=== PATIENT | female | born 1940 | race Caucasian/White ===

== ENCOUNTER 2025-08-17 16:21 | Emergency (ER) | payer MEDICARE, BC ==
[~2025-08-17] VITALS: Ht 157.5 cm; Wt 98.0 kg
[~2025-08-17 16:21] MED LIST: AMLO-212 PO; ASPI-524 PO; ATOR40TA PO; FESO4TAB PO; METO-357 PO
[2025-08-17 16:23] VITALS: BP 180/88
[2025-08-17] MEDS ORDERED: ROSU20TA PO (16:39)
[2025-08-17] MEDS ORDERED: VALS160T29 PO (16:39)
[2025-08-17] MEDS ORDERED: NEOM28.37 TP (17:01)
[2025-08-17] MEDS ORDERED: SILVER SULFADIAZINE 1% CREAM 50 GM TP ONE (17:07)
[2025-08-17] MEDS: SILVER SULFADIAZINE 1% CREAM 50 GM TP ONE (17:11)
[2025-08-17 17:12] VITALS: BP 165/79; O2SAT 97
== END 2025-08-17 17:11 | disposition home or self-care (01) ==
LOC: ER 16:21
DX: S61.512A Laceration without foreign body of left wrist, initial encounter (principal); S61.511A Laceration without foreign body of right wrist, initial encounter; I11.9 Hypertensive heart disease without heart failure; E78.5 Hyperlipidemia, unspecified; M19.90 Unspecified osteoarthritis, unspecified site; Z79.82 Long term (current) use of aspirin; Z79.899 Other long term (current) drug therapy; Z88.0 Allergy status to penicillin; Z88.7 Allergy status to serum and vaccine; X58.XXXA Exposure to other specified factors, initial encounter; Y93.89 Activity, other specified; Y92.89 Other specified places as the place of occurrence of the external cause; Y99.9 Unspecified external cause status
CPT/HCPCS: A4606; A4663